=== PATIENT | female | born 1980 ===

== ENCOUNTER 2025-06-19 09:20 | Day surgery (SDC) | payer OTHER ==
[2025-06-19] MEDS ORDERED: MIDAZOLAM HCL 2 MG/2 ML VIAL IV ONE (15:45)
[2025-06-19] MEDS ORDERED: DIPHENHYDRAMINE HCL 50 MG/ML VIAL 1ML IV ONE (15:45)
[2025-06-19] MEDS ORDERED: fentaNYL CITRATE 50 MCG/ML AMPUL IV PUSH ONE (15:45)
== END 2025-06-19 16:35 | disposition home or self-care (01) ==
LOC: AMB-ENDOS 09:20
PROVIDERS: ATTEND Internal Medicine
DX: K63.5 Polyp of colon (principal); R19.4 Change in bowel habit